=== PATIENT | female | born 1950 | race Caucasian/White ===

== ENCOUNTER 2016-11-11 05:14 | Inpatient (IN) | payer OTHER ==
[2016-10-22 15:09] VITALS: BMI 21.0
--- NOTE | 2016-10-22 15:56 | PAT Medication Instructions ---
Service Date Oct 22, 2016. Current Home Medication List Ascorbic Acid (Vitamin C), 1,000 MG PO BID Cholecalciferol (Vitamin D3), 1 TAB PO QPM Coenzyme Q10 (Ubidecarenone) (Coq10), 100 MG PO QAM Fish Oil ([place]-3), 1 CAP PO QAM Brygtedvtqz-Vnvfwusjpjm-Nsi C- (Glucosamine Chondroitin), 1,000 MG PO BID Glutamine (L-Glutamine), 1,000 MG PO HS Multivitamin (Multivitamin), 1 TAB PO BID Probiotic Product (Probiotic), 1 TAB PO QPM Tryptophan (L-Tryptophan), 500 MG PO QPM [Citrical], 1 TAB PO QPM [Magnesium], 350 MG PO QAM [Pregnenolone], 1 TAB PO QAM [Vitamin K2-M7], 45 MCG PO Q2D [Zinc], 50 MG PO QAM Medication Instructions For Your Scheduled Surgery - Hold the following medications 2 weeks prior to surgery: Vitamin K2-M7 45 MCG PO Q2D Zinc, 50 MG PO QAM Coenzyme Q10 (Ubidecarenone) (Coq10), 100 MG PO QAM Fish Oil ([place]-3), 1 CAP PO QAM Glutamine (L-Glutamine), 1,000 MG PO HS Tryptophan (L-Tryptophan), 500 MG PO QPM Pregnenolone 1 TAB PO QAM Oregano - Hold the following medications 7 days prior to surgery: Kzsnpaqzqys-Ragouvfhptg-Gci C- (Glucosamine Chondroitin), 1,000 MG PO BID - Hold the following medications the morning of surgery: Magnesium 350 MG PO QAM Multivitamin (Multivitamin), 1 TAB PO BID Ascorbic Acid (Vitamin C), 1,000 MG PO BID - Take the following medications as scheduled the night before surgery: Citrical 1 TAB PO QPM Probiotic Product (Probiotic), 1 TAB PO QPM Multivitamin (Multivitamin), 1 TAB PO BID Cholecalciferol (Vitamin D3), 1 TAB PO QPM Ascorbic Acid (Vitamin C), 1,000 MG PO BID If you have any questions please call us at [phone] or [phone] ( [place]) or [phone]
[2016-10-22 16:24] LABS: BASO % 0.3 %; BASO ABS # 0.02 K/uL (0-0.2); COMPLETE YES; EOS % 2.3 %; HEMATOCRIT 35.4 % (37-47); IG% 0.1 %; LYMPH % 42.7 %; LYMPH ABS # 2.96 K/uL (1.2-3.4); MEAN CELL VOLUME 91.7 fL (80-100); MEAN CORPUSCULAR HEMOGLOBIN 31.6 pg (25-34); MEAN CORPUSCULAR HGB CONC 34.5 g/dl (32-36); MEAN PLATELET VOLUME 9.7 fL (7.4-10.4); MONO % 6.1 %; NEUT % 48.5 %; PLATELET COUNT 270 K/uL (130-400); RED BLOOD COUNT 3.86 M/uL (4.2-5.4); WHITE BLOOD COUNT 6.94 K/uL (4.8-10.8)
[2016-10-22 16:30] LABS: URINE APPEARANCE CLEAR (CLEAR); URINE BILIRUBIN NEG (NEG); URINE COLOR YELLOW; URINE NITRITE NEG (NEG); URINE SPECIFIC GRAVITY 1.007 (1.000-1.030); UROBILINOGEN NEG (NEG); ZZUR CULT IF INDIC CLEAN CATCH NO
--- NOTE | 2016-10-22 16:32 | DIAGNOSTIC IMAGING REPORT ---
CHEST 2 VIEWS ROUTINE CLINICAL HISTORY: PAT preoperative evaluation COMPARISON STUDY: No previous studies for comparison. FINDINGS: The bones soft tissues and hemidiaphragms are normal. The cardiomediastinal silhouette is normal. The lungs are clear. The pulmonary vasculature is normal. IMPRESSION: Negative chest. Electronically signed by: Cristian Toussaint M.D. 10/22/2016 4:30 PM Dictated Date/Time: 10/22/2016 4:30 PM
[2016-10-22 16:33] LABS: INR 0.9 (0.9-1.1)
[2016-10-22 16:35] LABS: BUN/CREATININE RATIO 21.4 (10-20); CALCIUM 8.9 mg/dl (8.5-10.1); CREATININE 0.72 mg/dl (0.60-1.20); POTASSIUM 4.2 mmol/L (3.5-5.1)
[2016-10-22 16:36] LABS: MANUAL MICROSCOPIC REQUIRED? NO; REVIEW REQ? NO
--- NOTE | 2016-11-08 13:49 | HISTORY & PHYSICAL EXAMINATION ---
DATE OF ADMISSION: 11/11/2016 CHIEF COMPLAINT: Left hip pain. HISTORY OF PRESENT ILLNESS: Tanya is a 65-year-old female with 3-year history of left hip pain. The patient also describes stiffness. She has pain with her daily activities. She has limited standing and walking tolerance. Pain is worse with weightbearing. The patient has been taking supplements and home exercise program without relief. She has failed conservative treatment and is scheduled for left hip replacement. PAST MEDICAL HISTORY: Osteoarthritis. She denies heart disease, diabetes or DVT. PAST SURGICAL HISTORY: Tonsillectomy, and colonoscopy. SOCIAL HISTORY: The patient denies alcohol or tobacco use. She lives in a 2-story home. She is and retired. FAMILY HISTORY: Negative for DVT. MEDICATIONS: Glucosamine chondroitin 1000 mg, CoQ10 100 mg, vitamin K2, fish oil supplement, magnesium 350 mg, L-Tryptophan 500 mg, vitamin D3 1000 international units, Citracal 500 mg. ALLERGIES: AMOXICILLIN. REVIEW OF SYSTEMS: See HPI. Ten other systems reviewed, all negative. PHYSICAL EXAMINATION: VITAL SIGNS: Height 5 feet 1 inch, weight 110 pounds. BMI is 21. GENERAL: This is a well-developed, well-nourished female who is alert and oriented x3. Mood and affect are appropriate. HEAD, EYES, EARS, NOSE, AND THROAT: Normocephalic, atraumatic. Mucous membranes are moist and intact. NECK: Supple without lymphadenopathy. HEART: Regular rate and rhythm without murmurs, rubs or gallops. LUNGS: Clear to auscultation without wheezes or rhonchi. ABDOMEN: Soft and nontender. Bowel sounds are equal and active. EXTREMITIES: No ecchymosis, redness or warmth. Thigh and calf are soft and nontender. Log roll of the hip reproduces pain in the groin. She is neurovascularly intact. She walks with an antalgic gait. X-RAY EXAMINATION: AP and lateral views show joint space narrowing and large osteophyte formation severe. IMPRESSION: Degenerative joint disease, left hip. PLAN: The patient will be admitted for a left total hip arthroplasty, direct anterior approach. We will plan on aspirin for DVT prophylaxis. The patient will have [facility] for home physical therapy. PCP is Dr. Ankita Jacome in [place].
[~2016-11-11] VITALS: Ht 154.9 cm; Wt 49.0 kg
[2016-11-11] VITALS (10 sets, daily range): BP systolic 93–138; BP diastolic 52–76; PULSE 63–98; TEMP 36.2–37.2; O2SAT 95–100; Ht 154.9 cm; Wt 49.0 kg
[~2016-11-11 05:14] MED LIST: ASCO10003 PO; CHOL1000 PO; CITRICAL PO; COEN100C7 PO; GLUCTAB7 PO; GLUT1TAB PO; MAGNESIUM PO; MISCCAP80 PO; MULT-506 PO; OMEG10007 PO; PREGNENOLONE PO; TRYP500C PO; VITAMIN K PO; ZINC PO
[2016-11-11] MEDS ORDERED: CeleBREX 200 MG CAP PO SCH (06:00)
[2016-11-11] MEDS ORDERED: OXYCODONE HCL 10 MG TABCR (OXYCONTIN) PO SCH (06:00)
[2016-11-11] MEDS ORDERED: CLINDAMYCIN 600 MG/54 ML D5W 54 ML IV SCH (06:00)
[2016-11-11] MEDS ORDERED: ACETAMINOPHEN 500 MG TAB PO SCH (06:00)
[2016-11-11] MEDS ORDERED: LACTATED RINGER'S 1000ML IV SCH (06:00)
[2016-11-11] MEDS ORDERED: METOCLOPRAMIDE HCL 10 MG TAB PO SCH (06:00)
[2016-11-11] MEDS ORDERED: VANCOMYCIN INJ 400 MG in NSS 100ML IR SCH (06:00)
[2016-11-11] MEDS ORDERED: FAMOTIDINE 20 MG TAB PO SCH (06:00)
[2016-11-11] MEDS ORDERED: POLYMYXIN B SULFATE 100,000 UNITS in NSS 100ML IR SCH (06:00)
[2016-11-11] MEDS ORDERED: DEXAMETHASONE 4 MG TAB PO SCH (06:00)
[2016-11-11] MEDS ORDERED: GABAPENTIN 300 MG CAP PO SCH (06:00)
[2016-11-11] MEDS ORDERED: FENTANYL CITRATE INJ 50 MCG/1 ML 2 ML VIAL ONE (06:03)
[2016-11-11] MEDS ORDERED: LIDOCAINE HCL 2% 2 ML VIAL (20MG/ML) ONE (06:03)
[2016-11-11] MEDS ORDERED: MIDAZOLAM HCL 1 MG/ML 2ML VIAL ONE (06:03)
[2016-11-11] MEDS ORDERED: PROPOFOL IV EMULSION 10 MG/ML 20 ML VIAL IV ONE ×2 (06:04→08:08)
[2016-11-11] MEDS ORDERED: ONDANSETRON INJ 2 MG/ML 2 ML VIAL ONE (06:04)
[2016-11-11] MEDS ORDERED: BACITRACIN 50000 UNIT VIAL ONE (06:34)
[2016-11-11] MEDS ORDERED: POVIDONE-IODINE OP SOLN 30 ML BTL ONE (06:34)
[2016-11-11] MEDS ORDERED: BUPIVACAINE 0.5 % 5 MG/1 ML PF 10ML VIAL ONE (06:39)
[2016-11-11] MEDS ORDERED: CeleBREX 200 MG CAP ONE (06:47)
[2016-11-11] MEDS ORDERED: DEXAMETHASONE 4 MG TAB ONE (06:48)
[2016-11-11] MEDS ORDERED: ACETAMINOPHEN 500 MG TAB PO ONE (06:48)
[2016-11-11] MEDS ORDERED: FAMOTIDINE 20 MG TAB ONE (06:48)
[2016-11-11] MEDS ORDERED: METOCLOPRAMIDE HCL 10 MG TAB PO ONE (06:48)
[2016-11-11] MEDS ORDERED: CLINDAMYCIN 600 MG/54 ML D5W IV ONE (06:48)
[2016-11-11] MEDS ORDERED: GABAPENTIN 300 MG CAP PO ONE (06:48)
--- NOTE | 2016-11-11 06:50 | History & Physical Bridge Note ---
H&P Re-Evaluation Bridge Note: I have examined the patient, reviewed the History & Physical and in the interval since the performance of the History & Physical I have noted the following changes of clinical significance: No changes noted
[2016-11-11] MEDS ORDERED: ONDANSETRON INJ 2 MG/ML 2 ML VIAL IV PRN ×2 (07:00→08:45)
[2016-11-11] MEDS ORDERED: EpHEDrine SULFATE INJ 50 MG/ML AMP IV PRN (07:00)
[2016-11-11] MEDS ORDERED: FENTANYL CITRATE INJ 50 MCG/1 ML 2 ML VIAL IV PRN (07:00)
[2016-11-11] MEDS ORDERED: ATROPINE SULFATE 0.1 MG/ML 5ML SYR IV PRN (07:00)
[2016-11-11] MEDS: TRANEXAMIC ACID INJ 1,000 MG in SODIUM CHLORIDE 0.9% 100ML 100 ML IV SCH ×2 (07:01→10:21)
[2016-11-11] MEDS ORDERED: EpHEDrine SULFATE INJ 50 MG/ML AMP ONE (07:39)
[2016-11-11] MEDS ORDERED: ROPIVACAINE 5MG/ML 30 ML 150 MG, BUPIVACAINE/EPINEPHR 0.5% MPF 30 ML, KETOROLAC TROMETH... INFIL SCH ×7 (08:00)
--- NOTE | 2016-11-11 08:34 | [facility] Post Operative Brief Note ---
Immediate Operative Summary Operative Date November 11, 2016. Pre-Operative Diagnosis Left Hip Degenerative Joint Disease Post-Operative Diagnosis Left Hip Degenerative Joint Disease Procedure(s) Performed Left Total Hip Arthroplasty, Direct Anterior Approach Surgeon Dr. Mark Wu Telecommunications Specialist Surgeon(s) Janna Tristan PA-C Estimated Blood Loss 50ML Findings SEVERE DZ Specimens A. Left Femoral Head Complication(s) None Disposition Recovery Room / PACU
[2016-11-11] MEDS ORDERED: BISACODYL 10 MG SUPP PR PRN (08:45)
[2016-11-11] MEDS ORDERED: SOD PHOSPHATE/SOD BIPHOSPHATE ENEMA 132 ML BTL PR PRN (08:45)
[2016-11-11] MEDS ORDERED: [UNRECOGNIZED DRUG - OTHER] PO SCH (08:45)
[2016-11-11] MEDS ORDERED: ZOLPIDEM TARTRATE 5 MG TAB PO PRN (08:45)
[2016-11-11] MEDS ORDERED: OXYCODONE HCL IR 5 MG TAB (IMMEDIATE RELEASE) PO PRN (08:45)
[2016-11-11] MEDS ORDERED: DiphenhydrAMINE HCL 50 MG/ML VIAL IV PRN (08:45)
[2016-11-11] MEDS ORDERED: TRAMADOL HCL 50 MG TAB PO PRN (08:45)
[2016-11-11] MEDS ORDERED: METOCLOPRAMIDE HCL INJ 5 MG/ML 2 ML VIAL IV PRN (08:45)
[2016-11-11] MEDS ORDERED: ALUMINUM/MAGNESIUM/SIMETH (MAALOX MAX) 30 ML UDC PO PRN (08:45)
[2016-11-11] MEDS ORDERED: MAGNESIUM HYDROXIDE SUSP 30 ML UDC PO PRN (08:45)
[2016-11-11] MEDS ORDERED: MoRPHine SULFATE 2 MG/ML CARP IV PRN (08:45)
[2016-11-11] MEDS ORDERED: ZINC 50 MG PO SCH (09:00)
[2016-11-11] MEDS ORDERED: PREGNENOLONE PO SCH (09:00)
--- NOTE | 2016-11-11 09:00 | DIAGNOSTIC IMAGING REPORT ---
LEFT HIP UNILATERAL 1 VIEW CLINICAL HISTORY: LEFT ANTERIOR HIP hip replacement COMPARISON: None. DISCUSSION: Total left hip replacement with prosthetic aligned anatomically expected soft tissue postoperative change IMPRESSION: Anatomic alignment status post total left hip replacement Electronically signed by: Cristian Toussaint M.D. 11/11/2016 8:59 AM Dictated Date/Time: 11/11/2016 8:58 AM
--- NOTE | 2016-11-11 09:43 | DIAGNOSTIC IMAGING REPORT ---
LEFT PELVIS/UNILATERAL HIP 1 VIEW CLINICAL HISTORY: Left hip degenerative arthritis. COMPARISON: Pelvis and left hip radiographs June 13, 2016. FINDINGS: Alignment of the total left hip arthroplasty is anatomic. There is no fracture or unexpected radiopaque foreign body. There is an acetabular screw. Drain is in place. IMPRESSION: Expected findings following total left hip arthroplasty. Electronically signed by: David Salinas M.D. 11/11/2016 9:42 AM Dictated Date/Time: 11/11/2016 9:41 AM
[2016-11-11] MEDS: LACTATED RINGER'S 500 ML IV SCH ×2 (10:21→10:59)
--- NOTE | 2016-11-11 10:21 | Anesthesiology Progress Note ---
Anesthesia Post Op Note Date & Time November 11, 2016 at 10:20 Vital Signs Pain Intensity: 0 Vital Signs Past 12 Hours Date Time Temp Pulse Resp B/P Pulse Ox O2 Delivery O2 Flow Rate FiO2 11/11/16 09:40 36.3 83 16 112/56 100 Nasal Cannula 2 11/11/16 09:30 83 16 109/55 100 Nasal Cannula 2 11/11/16 09:20 69 16 102/55 100 Nasal Cannula 2 11/11/16 09:10 76 16 104/55 100 Nasal Cannula 2 11/11/16 09:00 71 16 102/55 100 Nasal Cannula 2 11/11/16 08:53 36 99 16 105/53 100 Mask 10 11/11/16 05:40 36.8 63 18 138/76 98 Room Air Notes Mental Status: alert / awake / arousable, participated in evaluation Pt Amnestic to Procedure: Yes Nausea / Vomiting: adequately controlled Pain: adequately controlled Airway Patency, RR, SpO2: stable & adequate BP & HR: stable & adequate Hydration State: stable & adequate Neuraxial Anesthesia: was administered, sensory block is resolving Anesthetic Complications: no major complications apparent
[2016-11-11] MEDS: D5W AND 1/2NSS + 20MEQ KCL 1,000 ML IV SCH ×2 (11:07→20:42)
[2016-11-11] MEDS: PANTOprazole SOD 40 MG TAB PO SCH (11:09)
[2016-11-11] MEDS: ASPIRIN 81 MG ECTAB PO SCH ×2 (11:15→20:41)
[2016-11-11] MEDS: MAGNESIUM OXIDE 400 MG TAB PO SCH (11:15)
[2016-11-11] MEDS: MULTIVITAMIN TAB PO SCH (11:15)
[2016-11-11] MEDS: ASCORBIC ACID 500 MG TAB PO SCH ×2 (11:16→20:41)
[2016-11-11] MEDS: KETOROLAC TROMETHAMINE 15 MG/ML VIAL IV. SCH ×2 (12:40→18:18)
[2016-11-11] MEDS: ACETAMINOPHEN 500 MG TAB PO SCH ×2 (13:42→21:46)
[2016-11-11] MEDS: CLINDAMYCIN IV 600 MG in DEXTROSE 5% ADD-VANTAGE 50ML 50 ML IV SCH (16:00)
--- NOTE | 2016-11-11 16:08 | OPERATIVE REPORT ---
DATE OF OPERATION: 11/11/2016 PREOPERATIVE DIAGNOSIS: Degenerative arthritis, left hip. POSTOPERATIVE DIAGNOSIS: Same. PROCEDURE: Left total hip replacement. SURGEON: Miguelito Wu MD APPLICATIONS PROJECT MANAGER: ANIL Melo ANESTHESIA: Spinal. BLOOD LOSS: 50 mL. REPLACEMENT FLUIDS: 1500 mL crystalloid. DRAINS: Hemovac x1. CULTURES: None. COMPLICATIONS: None. COMPONENTS USED: [employer] hip system: Acetabulum size 48, femur size 2 high offset, femoral head 0, and neck length 32 mm. NOTE: ANIL Melo was present and assisted throughout due to the complicated nature of this case. She helped with preparation and set up, first assisted throughout and personally closed the fascial, subcutaneous and skin layers and applied the postoperative dressing. DESCRIPTION OF PROCEDURE: Following satisfactory spinal, the patient was placed supine on the table. The left leg was placed in the traction device and the right leg in the well leg ruff. Left leg was then prepared with ChloraPrep and draped sterilely. Following a surgical time-out, an anterior approach in the interval between the sartorius and tensor muscles was completed. Circumflex femoral vessels were identified and ligated. Anterior capsulotomy was performed exposing the arthritic femoral neck and head. The femoral neck and head were trimmed and removed. The acetabular self-retaining retractor was placed. Acetabular preparation and reaming was completed and the 4-in-1 block was used. The position was confirmed with fluoroscopy. The final implant was then placed and the local anesthetic was placed. Following irrigation, the femur was then placed in a position of external rotation, extension and adduction. Femoral canal was prepared up to the size 2. A trial reduction with a 0 neck length head showed synagogue of leg lengths and good fit and fill of the proximal canal using anatomic landmarks on fluoroscopy. The hip was dislocated. The trial component was removed. Following irrigation, the final implant was placed. The hip was reduced and a Betadine soak was performed. Fluoroscopy confirmed similar position. After 5 minutes, the Betadine was irrigated. The capsule was closed with #1 Vicryl interrupted. The fascia after a drain was placed was closed with a running suture of #1 Vicryl. The subcutaneous tissues were closed with 2-0 Vicryl and the skin with a running subcuticular stitch of 3-0 V-Loc. Dermabond and a dry dressing were applied. The patient was returned to her bed in stable condition. I attest to the content of the Intraoperative Record and any orders documented therein. Any exceptio ns are noted below.
[2016-11-11] MEDS ORDERED: SENNA 8.6 MG TAB PO SCH (21:00)
[2016-11-11] MEDS ORDERED: NON-FORMULARY MEDICATION (Probiotic Product (Probiotic) 1 TAB) PO SCH (21:00)
[2016-11-11] MEDS ORDERED: CHOLECALCIFEROL 1000 INTER.UNIT TAB PO SCH (21:00)
[2016-11-12] MEDS: CLINDAMYCIN IV 600 MG in DEXTROSE 5% ADD-VANTAGE 50ML 50 ML IV SCH (00:20)
[2016-11-12] MEDS: KETOROLAC TROMETHAMINE 15 MG/ML VIAL IV. SCH ×3 (00:21→12:00)
[2016-11-12 03:30] VITALS: BP 96/65; PULSE 64; TEMP 36.6; O2SAT 99
[2016-11-12 05:37] LABS: BASO % 0.1 %; BASO ABS # 0.01 K/uL (0-0.2); COMPLETE YES; EOS % 0.1 %; HEMATOCRIT 29.8 % (37-47); IG% 0.3 %; LYMPH % 12.3 %; LYMPH ABS # 1.74 K/uL (1.2-3.4); MEAN CORPUSCULAR HEMOGLOBIN 30.9 pg (25-34); MEAN CORPUSCULAR HGB CONC 32.9 g/dl (32-36); MEAN PLATELET VOLUME 9.6 fL (7.4-10.4); MONO % 7.9 %; NEUT % 79.3 %; PLATELET COUNT 241 K/uL (130-400); RED BLOOD COUNT 3.17 M/uL (4.2-5.4)
[2016-11-12] MEDS: D5W AND 1/2NSS + 20MEQ KCL 1,000 ML IV SCH (06:00)
[2016-11-12] MEDS: ACETAMINOPHEN 500 MG TAB PO SCH ×2 (06:01→14:17)
[2016-11-12 06:11] LABS: BUN/CREATININE RATIO 23.8 (10-20); CALCIUM 8.1 mg/dl (8.5-10.1); CREATININE 0.77 mg/dl (0.60-1.20); POTASSIUM 4.7 mmol/L (3.5-5.1)
[2016-11-12 07:52] VITALS: BP 105/60; PULSE 67; TEMP 36.8; O2SAT 99
[2016-11-12] MEDS: PANTOprazole SOD 40 MG TAB PO SCH (09:00)
[2016-11-12] MEDS: MAGNESIUM OXIDE 400 MG TAB PO SCH (09:02)
[2016-11-12] MEDS: ASPIRIN 81 MG ECTAB PO SCH (09:02)
[2016-11-12] MEDS: MULTIVITAMIN TAB PO SCH (09:02)
[2016-11-12] MEDS: ASCORBIC ACID 500 MG TAB PO SCH (09:03)
--- NOTE | 2016-11-12 09:44 | Anesthesiology Progress Note ---
Anesthesia Post Op Note Date & Time November 12, 2016 at 09:44 Vital Signs Pain Intensity: 0.0 Vital Signs Past 12 Hours Date Time Temp Pulse Resp B/P Pulse Ox O2 Delivery O2 Flow Rate FiO2 11/12/16 08:00 Room Air 11/12/16 07:52 36.8 67 16 105/60 99 Room Air 11/12/16 03:30 36.6 64 17 96/65 99 Room Air 11/12/16 00:35 Room Air 11/11/16 23:00 36.6 75 18 93/52 97 Room Air 11/11/16 22:45 107/58 Notes Mental Status: alert / awake / arousable, participated in evaluation Pt Amnestic to Procedure: Yes Nausea / Vomiting: adequately controlled Pain: adequately controlled Airway Patency, RR, SpO2: stable & adequate BP & HR: stable & adequate Hydration State: stable & adequate Neuraxial Anesthesia: sensory block resolved Anesthetic Complications: no major complications apparent
[2016-11-12 11:56] VITALS: BP 105/64; PULSE 61; TEMP 37.1; O2SAT 99
--- NOTE | 2016-11-12 13:05 | Discharge Instructions ---
Discharge Instructions Date of Service November 12, 2016. Admission Reason for Admission: Left Hip Degenerative Arthritis Discharge Discharge Diagnosis / Problem: sp left NEGAR, direct anterior Discharge Goals Goal(s): Decrease discomfort, Improve function, Increase independence Activity Recommendations Activity Limitations: per Instructions/Follow-up section . Instructions / Follow-Up Instructions / Follow-Up ACTIVITY RECOMMENDATIONS: SELF CARE INSTRUCTIONS AFTER TOTAL HIP REPLACEMENT : Direct Anterior Approach Until the incision and soft tissues around your hip have healed, there is a possibility that the hip prosthesis could dislocate. A. Hip flexion ( Up & Down out of chair or steps ) may be difficult. This is normal. B. Numbness in front of the thigh is also normal for a few weeks. C. Use hand rails when walking on stairs. D. Wear low heeled shoes with non-slip soles. E. Be sure that your floors are free of things that could trip you - throw rugs , electrical cords, small objects. Avoid wet and waxed floors, especially with crutches and canes. F. Try to walk several times a day with rest periods between. G. Continue with all the exercises taught to you in the hospital. Again, make walking a part of your daily routine. SPECIAL CARE INSTRUCTIONS: VERY IMPORTANT TO READ AND REVIEW A. You may still be at risk for phlebitis and blood clots. 1. Wear surgical stockings (RALPH hose) for 2 weeks after surgery to improve circulation and reduce swelling. 2. Take Aspirin 81mg twice daily for 4 weeks or as directed by your doctor. This is your blood thinner. 3. High risk patients may be prescribed a stronger blood thinner if necessary. 4. If you are on Coumadin normally, your family doctor/sql server developer should monitor your blood work. Expect a phone call the day of or the day after bloodwork is drawn to adjust your dosage. B. You must take antibiotics before having dental work, bladder, bowel and other surgery. Your doctor will provide you with a permanent card to carry describing precautions. C. Call [facility] if you have a fever, redness or swelling around the incision, cloudy drainage from incision, or sudden increase in pain in your hip, not relieved by your regular pain medication. D. Please call the office at if you have any concerns or questions about your operation or recovery. * YOU MAY SHOWER, NO TUB BATHS UNTIL CLEARED BY YOUR DOCTOR. - Keep an extra close eye on the top portion of your incision. Be sure to keep clean & dry. * WEAR RALPH HOSE 20 HOURS PER DAY FOR 2 WEEKS. * YOU MAY PROGRESS FROM A WALKER, TO A CANE, TO INDEPENDENT AT YOUR OWN PACE. * MOST PATIENTS WILL HAVE HOME NURSING FOR THERAPY. IF YOU DECIDE TO DO OUTPATIENT PHYSICAL THERAPY, PLEASE SCHEDULE THIS 3 TIMES PER WEEK. * DERMABOND Prineo- This is a mesh tape dressing that is covered with glue. It should remain in place until the incision is properly healed, usually 10-14 days. This dressing is designed to naturally slough off. You may trim the excess mesh tape as it peels off. Incision may be briefly wet in a shower. Dry immediately by blotting with a clean, dry towel. Do not bath or swim until instructed by your doctor. Do not scratch, rub, or pick at the dressing. Do not apply any topical ointments or lotions until dressing is completely removed and/or instructed by your doctor. There may be a small piece of suture material at one end of your incision. Do not pull or trim this. If it is bothersome or catching on clothing, you may cover it with a band-aid. FOLLOW UP VISIT: If appointment is not already scheduled: Please call [facility] to make a follow-up appointment for 2 weeks after your surgery at . Current Hospital Diet Patient's current hospital diet: Regular Diet Discharge Diet Recommended Diet: Regular Diet Procedures Procedures Performed: Left Total Hip Arthroplasty, Direct Anterior Approach Pending Studies Studies pending at discharge: no Medical Emergencies . Who to Call and When: Medical Emergencies: If at any time you feel your situation is an emergency, please call 911 immediately. . Non-Emergent Contact Non-Emergency issues call your: Surgeon . "Provider Documentation" section prepared by Marcia Tristan. . VTE Core Measure Inpt VTE Proph given/why not?: Other Anticoagulation, T.E.D. Stockings, SCD's [place] Drug Monitoring Program Search Results: patient reviewed within database, no issues identified
[2016-11-12] MEDS ORDERED: ACET-1138 PO (13:06)
[2016-11-12] MEDS ORDERED: CLB200 PO (13:06)
[2016-11-12] MEDS ORDERED: ASPEC81 PO (13:06)
--- NOTE | 2016-11-12 14:06 | DISCHARGE SUMMARY ---
DISCHARGE DIAGNOSIS: Degenerative joint disease, left hip. SECONDARY DIAGNOSIS: None. CONSULTS: None. COMPLICATIONS: None. PROCEDURE: The patient underwent a direct anterior left total hip arthroplasty with Dr. Wu on 11/11/2016. BRIEF HISTORY: Please see previously dictated history and physical. HOSPITAL SUMMARY: The patient was admitted on the above day for the above procedure. Procedure went without complication. Postop day #1, the patient was feeling well without complaints. She denied chest pain or shortness of breath. Vital signs were stable. She was afebrile. Dressing was clean, dry and intact. She was neurovascularly intact. Calves were soft and nontender. Hip was located. Hemovac drained 150 and 50 mL per shift. Hemoglobin was 9.8. The patient began physical therapy per protocol. She was discharged to home later that day in stable condition. For further review, please see the chart. Lab, x-ray data and discharge instructions as per chart.
[2016-11-12 14:58] VITALS: BP 105/64; PULSE 67; TEMP 37.1; O2SAT 99
[2016-11-13] MEDS ORDERED: CeleBREX 200 MG CAP PO SCH (21:00)
== END 2016-11-12 16:22 | disposition home health service (06) | DRG 470 ==
LOC: ENRESERVDT → ENRESERVTM → C.ACU 05:14 → C.3E 06:00
PROVIDERS: ADMIT Orthopaedic Surgery; ATTEND Orthopaedic Surgery
PROC: 0SRB04Z Replacement of Left Hip Joint with Ceramic on Polyethylene Synthetic Substitute, Open Approach (ICD-10-PCS; principal; 2016-11-11 07:00)
DX: M16.12 Unilateral primary osteoarthritis, left hip (principal)